=== PATIENT | female | born 1990 | race Caucasian/White ===

== ENCOUNTER → 2018-04-03 | Outpatient (CLI) | payer MEDICAID | LOC: FIMAGING 12:33 | PROVIDERS: ATTEND Obstetrics & Gynecology | DX: O24.414 Gestational diabetes mellitus in pregnancy, insulin controlled (principal); Z3A.13 13 weeks gestation of pregnancy ==

== ENCOUNTER → 2018-07-04 | Outpatient (CLI) | payer MEDICAID | LOC: FIMAGING 13:51 | PROVIDERS: ATTEND Obstetrics & Gynecology | DX: O24.414 Gestational diabetes mellitus in pregnancy, insulin controlled (principal); Z3A.26 26 weeks gestation of pregnancy ==